=== PATIENT | female | born 1990 | race Native Hawaiian/Other Pacific Islander ===

== ENCOUNTER 2019-05-19 03:00 | Emergency (ER) | payer OTHER ==
[2019-05-19] MEDS ORDERED: Sodium Chloride 0.9% 1000 ML 1,000 ML IV STA (03:06)
--- NOTE | 2019-05-19 03:25 | ERPHSYRPT ---
- History of Present Illness Time Seen by Provider: 05/19/19 03:05 Source: patient Exam Limitations: no limitations Physician History: Patient believes she is with last known menstrual period around 2018. Patient having spotting in the morning of 05/18/2019 with worse bleeding and cramping in the evening of 05/18/2019. The patient is a with 2 previous pregnancies, by preeclampsia. Patient has not had any care up to this point. Timing/Duration: today, hour(s) (15), worse (over the past 5 hours) Activites at Onset: none Quality: cramping Onset Location: vaginal Pain Radiation: none Severity of Pain-Max: moderate Severity of Pain-Current: mild Prior abdominal problems: none Sexual intercourse history: less than 2 months ago, single partner, unprotected intercourse Modifying Factors: Improves With: nothing. Worsens With: analgesics, antacids, breathing, coughing, defecating, eating, exercise, lying down, movement, palpation, rest, urinating, vomiting, position, walking Associated Symptoms: , No abdominal pain, No fever, No chills, No diaphoresis, No nausea, No vomiting, No dysuria, No nocturia, No polyuria, No urinary frequency, No loss of bladder control, No lower back pain, No lumps, No mass, No swelling, No syncope, No vaginal discharge, No vaginal fluid leakage Allergies/Adverse Reactions: aripiprazole [From Abilify] Allergy (Verified 05/19/19 03:31) ziprasidone [From Geodon] Allergy (Verified 05/19/19 03:31) - Review of Systems Constitutional: No Fever, No Chills, No Fatigue Eyes: No Eye Pain, No Vision Changes Ears, Nose, & Throat: No Mouth Swelling, No Painful Swallowing Respiratory: No Cough, No Dyspnea Cardiac: No Chest Pain, No Palpitations, No Syncope Abdominal/Gastrointestinal: Nausea, No Abdominal Pain, No Vomiting, No Hematemesis, No Hematochezia, No Melena Genitourinary Symptoms: , Vaginal Bleeding, No Dysuria, No Frequency, No Hematuria, No Urgency, No Flank Pain, No Vaginal Discharge, No Vaginal Itching Musculoskeletal: No Back Pain, No Neck Pain, No Joint Redness, No Joint Pain, No Joint Swelling Skin: No Pruritis, No Rash Neurological: No Dizziness, No Focal Weakness, No Parasthesia Psychological: No Anxiety, No Emotional Lability Hematologic/Lymphatic: Easy Bruising, No Easy Bleeding - Female History Hx Now: Yes - Nursing Vital Signs Nursing Vital Signs: Initial Vital Signs Temperature 98.7 F 05/19/19 03:04 Pulse Rate 72 05/19/19 03:04 Respiratory Rate 16 05/19/19 03:04 Blood Pressure 135/82 05/19/19 03:04 O2 Sat by Pulse Oximetry 99 05/19/19 03:04 Pain Scale Pain Intensity 4 - Physical Exam General Appearance: no apparent distress, alert Eye Exam: PERRL/EOMI, eyes nml inspection, No scleral icterus Ears, Nose, Throat Exam: pharynx normal, moist mucous membranes Neck Exam: normal inspection, non-tender, supple, full range of motion, No meningismus, No Brudzinski Respiratory Exam: normal breath sounds, lungs clear, airway intact, No chest tenderness, No respiratory distress, No diminished breath sounds, No accessory muscle use, No crackles/rales, No rhonchi, No wheezing, No stridor Cardiovascular Exam: regular rate/rhythm, normal heart sounds, normal peripheral pulses, capillary refill <2 sec, No murmur Gastrointestinal/Abdomen Exam: soft, normal bowel sounds, No tenderness, No distention, No mass, No ecchymosis, No hepatomegaly Pelvic Exam: normal external exam, vaginal bleeding, other (bleeding from the cervix, but cervix is closed; patient had no products of conception in the uterus; chaperoned by Teresa Adamson RN), No adnexal tenderness, No adnexal mass, No cervical motion tenderness, No uterine tenderness, No vaginal discharge Rectal Exam: normal exam, normal rectal tone, No hemorrhoids, No blood Back Exam: normal inspection, normal range of motion, No CVA tenderness, No vertebral tenderness, No rash Extremity Exam: normal inspection, normal range of motion, pelvis stable, No deformities, No miguel's sign, No inflammation, No swelling Neurologic Exam: alert, oriented x 3, cooperative, nurse auditor II-XII nml as tested, normal mood/affect, sensation nml, No motor deficits, No agitation, No motor weakness Skin Exam: normal color, warm, dry, No rash, No petechiae, No jaundice, No cyanosis SpO2 Interpretation: normal O2 Delivery: Room Air - Radiology Ultrasound Exam OB Ultrasound: Other (no intrauterine or extrauterine visualized; complex right ovarian cyst measuring 1.1 x 1.5 x 1.2 cm; two subcentimeter left ovarian cyst;) Ordered Tests: Active Orders 24 hr Category Date Time Status Errand Runner STAT Care 05/19/19 03:09 Active Heart Tones-ED STAT Care 05/19/19 03:10 Active IV Insertion STAT Care 05/19/19 03:06 Active NPO (ED) STAT Care 05/19/19 03:06 Active Pelvic Exam Assist STAT Care 05/19/19 03:06 Active OB <14 WKS 1ST GESTATION [US] Stat Exams 05/19/19 03:54 Taken CBC W DIFF Stat Lab 05/19/19 04:00 Completed CMP Stat Lab 05/19/19 04:00 Completed CULTURE,URINE Stat Lab 05/19/19 03:10 Received HCG, Quantitative (Inhouse) Stat Lab 05/19/19 04:00 Completed PROTIME WITH INR Stat Lab 05/19/19 04:00 Completed PTT Stat Lab 05/19/19 04:00 Completed UA W/RFX UR CULTURE Stat Lab 05/19/19 03:10 Completed Urine Triage Profile Stat Lab 05/19/19 03:10 Completed Wet Prep Stat Lab 05/19/19 03:23 Completed Medication Summary Discontinued Medications Generic Name Dose Route Start Last Admin Trade Name Freq PRN Reason Stop Dose Admin Sodium Chloride 1,000 mls @ 999 mls/hr 05/19/19 03:06 05/19/19 04:25 Sodium Chloride 0.9% 1000 Ml IV 05/19/19 04:06 999 mls/hr .Q1H1M STA Administration Sodium Chloride Confirm 05/19/19 04:21 Sodium Chloride 0.9% 1000 Ml Administered 05/19/19 04:22 Dose 1,000 mls @ ud .ROUTE .STK-MED ONE Lab/Rad Data: Laboratory Result Diagrams 05/19/19 04:00 05/19/19 04:00 Laboratory Results 05/19/19 05/19/19 05/19/19 Range/Units 04:00 04:00 04:00 WBC (4.0-10.5) K/mm3 RBC (4.1-5.4) M/mm3 Hgb (12.0-16.0) gm/dl Hct (35-47) % MCV (78-100) fl MCH (26-32) pg MCHC (32-36) g/dl RDW (11.5-14.0) % Plt Count (150-450) K/mm3 MPV (6-9.5) fl Gran % (36.0-66.0) % Eos # (Auto) (0-0.5) Absolute Lymphs (auto) (1.0-4.6) Absolute Monos (auto) (0.0-1.3) Lymphocytes % (24.0-44.0) % Monocytes % (0.0-12.0) % Eosinophils % (0.00-5.0) % Basophils % (0.0-0.4) % Absolute Granulocytes (1.4-6.9) Basophils # (0-0.4) PT 12.4 H (9.95-12.35) SECONDS INR 1.10 (0.8-3.0) APTT 30.6 (25.3-37.0) SECONDS Sodium 141 (137-145) mmol/L Potassium 4.0 (3.5-5.1) mmol/L Chloride 104 (98-107) mmol/L Carbon Dioxide 28 (22-30) mmol/L Anion Gap 13.6 (5-15) MEQ/L BUN 13 (7-17) mg/dL Creatinine 0.67 (0.52-1.04) mg/dL Estimated GFR > 60.0 ML/MIN Glucose 98 (74-106) mg/dL Calcium 9.5 (8.4-10.2) mg/dL Total Bilirubin 0.30 (0.2-1.3) mg/dL AST 17 (14-36) U/L ALT 16 (0-35) U/L Alkaline Phosphatase 60 (38-126) U/L Serum Total Protein 7.4 (6.3-8.2) g/dL Albumin 3.8 (3.5-5.0) g/dL Beta HCG, Quant < 2.39 mIU/ml Urine Color (YELLOW) Urine Appearance (CLEAR) Urine pH (5-6) Ur Specific [place] (1.005-1.025) Urine Protein (Negative) Urine Ketones (NEGATIVE) Urine Blood (0-5) Gurpreet/ul Urine Nitrite (NEGATIVE) Urine Bilirubin (NEGATIVE) Urine Urobilinogen (0-1) mg/dL Ur Leukocyte Esterase (NEGATIVE) Urine WBC (Auto) (0-5) /HPF Urine RBC (Auto) (0-2) /HPF U Epithel Cells (Auto) (FEW) /HPF Urine Bacteria (Auto) (NEGATIVE) /HPF Urine Mucus (Auto) (NEGATIVE) /HPF Urine Culture Reflexed (NO) Urine Glucose (NEGATIVE) mg/dL WBC (Wet Prep) RBC (Wet Prep) Epi Cells (Wet Prep) Bacteria (Wet Prep) Clue Cells (Wet Prep) Trichomonas (Wet Prep) Budding Yeast (Wet Prp) Urine Opiates Level (NEGATIVE) Ur Methadone (NEGATIVE) Urine Barbiturates (NEGATIVE) Ur Phencyclidine (PCP) (NEGATIVE) Urine Amphetamine (NEGATIVE) U Benzodiazepine Level (NEGATIVE) Urine Cocaine (NEGATIVE) Urine Marijuana (THC) (NEGATIVE) Chlamydia DNA (PCR) N.gonorrhoeae DNA Probe ABO Group Rh Factor Antibody Screen (NEGATIVE) 05/19/19 05/19/19 05/19/19 Range/Units 04:00 04:00 03:23 WBC 8.8 (4.0-10.5) K/mm3 RBC 4.75 (4.1-5.4) M/mm3 Hgb 12.8 (12.0-16.0) gm/dl Hct 37.7 (35-47) % MCV 79.4 (78-100) fl MCH 26.9 (26-32) pg MCHC 34.0 (32-36) g/dl RDW 14.8 H (11.5-14.0) % Plt Count 376 (150-450) K/mm3 MPV 8.2 (6-9.5) fl Gran % 60.1 (36.0-66.0) % Eos # (Auto) 0.14 (0-0.5) Absolute Lymphs (auto) 2.81 (1.0-4.6) Absolute Monos (auto) 0.55 (0.0-1.3) Lymphocytes % 31.9 (24.0-44.0) % Monocytes % 6.2 (0.0-12.0) % Eosinophils % 1.6 (0.00-5.0) % Basophils % 0.2 (0.0-0.4) % Absolute Granulocytes 5.30 (1.4-6.9) Basophils # 0.02 (0-0.4) PT (9.95-12.35) SECONDS INR (0.8-3.0) APTT (25.3-37.0) SECONDS Sodium (137-145) mmol/L Potassium (3.5-5.1) mmol/L Chloride (98-107) mmol/L Carbon Dioxide (22-30) mmol/L Anion Gap (5-15) MEQ/L BUN (7-17) mg/dL Creatinine (0.52-1.04) mg/dL Estimated GFR ML/MIN Glucose (74-106) mg/dL Calcium (8.4-10.2) mg/dL Total Bilirubin (0.2-1.3) mg/dL AST (14-36) U/L ALT (0-35) U/L Alkaline Phosphatase (38-126) U/L Serum Total Protein (6.3-8.2) g/dL Albumin (3.5-5.0) g/dL Beta HCG, Quant mIU/ml Urine Color (YELLOW) Urine Appearance (CLEAR) Urine pH (5-6) Ur Specific [place] (1.005-1.025) Urine Protein (Negative) Urine Ketones (NEGATIVE) Urine Blood (0-5) Gurpreet/ul Urine Nitrite (NEGATIVE) Urine Bilirubin (NEGATIVE) Urine Urobilinogen (0-1) mg/dL Ur Leukocyte Esterase (NEGATIVE) Urine WBC (Auto) (0-5) /HPF Urine RBC (Auto) (0-2) /HPF U Epithel Cells (Auto) (FEW) /HPF Urine Bacteria (Auto) (NEGATIVE) /HPF Urine Mucus (Auto) (NEGATIVE) /HPF Urine Culture Reflexed (NO) Urine Glucose (NEGATIVE) mg/dL WBC (Wet Prep) RBC (Wet Prep) Epi Cells (Wet Prep) Bacteria (Wet Prep) Clue Cells (Wet Prep) Trichomonas (Wet Prep) Budding Yeast (Wet Prp) Urine Opiates Level (NEGATIVE) Ur Methadone (NEGATIVE) Urine Barbiturates (NEGATIVE) Ur Phencyclidine (PCP) (NEGATIVE) Urine Amphetamine (NEGATIVE) U Benzodiazepine Level (NEGATIVE) Urine Cocaine (NEGATIVE) Urine Marijuana (THC) (NEGATIVE) Chlamydia DNA (PCR) NEGATIVE N.gonorrhoeae DNA Probe NEGATIVE ABO Group A Rh Factor POSITIVE Antibody Screen NEGATIVE (NEGATIVE) 05/19/19 05/19/19 05/19/19 Range/Units 03:23 03:10 03:10 WBC (4.0-10.5) K/mm3 RBC (4.1-5.4) M/mm3 Hgb (12.0-16.0) gm/dl Hct (35-47) % MCV (78-100) fl MCH (26-32) pg MCHC (32-36) g/dl RDW (11.5-14.0) % Plt Count (150-450) K/mm3 MPV (6-9.5) fl Gran % (36.0-66.0) % Eos # (Auto) (0-0.5) Absolute Lymphs (auto) (1.0-4.6) Absolute Monos (auto) (0.0-1.3) Lymphocytes % (24.0-44.0) % Monocytes % (0.0-12.0) % Eosinophils % (0.00-5.0) % Basophils % (0.0-0.4) % Absolute Granulocytes (1.4-6.9) Basophils # (0-0.4) PT (9.95-12.35) SECONDS INR (0.8-3.0) APTT (25.3-37.0) SECONDS Sodium (137-145) mmol/L Potassium (3.5-5.1) mmol/L Chloride (98-107) mmol/L Carbon Dioxide (22-30) mmol/L Anion Gap (5-15) MEQ/L BUN (7-17) mg/dL Creatinine (0.52-1.04) mg/dL Estimated GFR ML/MIN Glucose (74-106) mg/dL Calcium (8.4-10.2) mg/dL Total Bilirubin (0.2-1.3) mg/dL AST (14-36) U/L ALT (0-35) U/L Alkaline Phosphatase (38-126) U/L Serum Total Protein (6.3-8.2) g/dL Albumin (3.5-5.0) g/dL Beta HCG, Quant mIU/ml Urine Color RED (YELLOW) Urine Appearance SLIGHTLY CLOUDY (CLEAR) Urine pH 5.0 (5-6) Ur Specific [place] 1.019 (1.005-1.025) Urine Protein 100 (Negative) Urine Ketones NEGATIVE (NEGATIVE) Urine Blood LARGE (0-5) Gurpreet/ul Urine Nitrite NEGATIVE (NEGATIVE) Urine Bilirubin NEGATIVE (NEGATIVE) Urine Urobilinogen NEGATIVE (0-1) mg/dL Ur Leukocyte Esterase TRACE (NEGATIVE) Urine WBC (Auto) 3-5 (0-5) /HPF Urine RBC (Auto) >101 (0-2) /HPF U Epithel Cells (Auto) RARE (FEW) /HPF Urine Bacteria (Auto) FEW (NEGATIVE) /HPF Urine Mucus (Auto) SLIGHT (NEGATIVE) /HPF Urine Culture Reflexed ORDERED SEPARATELY (NO) Urine Glucose NEGATIVE (NEGATIVE) mg/dL WBC (Wet Prep) Rare RBC (Wet Prep) Moderate Epi Cells (Wet Prep) Rare Bacteria (Wet Prep) Few Clue Cells (Wet Prep) None Seen Trichomonas (Wet Prep) None Seen Budding Yeast (Wet Prp) None Seen Urine Opiates Level NEGATIVE (NEGATIVE) Ur Methadone NEGATIVE (NEGATIVE) Urine Barbiturates NEGATIVE (NEGATIVE) Ur Phencyclidine (PCP) NEGATIVE (NEGATIVE) Urine Amphetamine NEGATIVE (NEGATIVE) U Benzodiazepine Level NEGATIVE (NEGATIVE) Urine Cocaine NEGATIVE (NEGATIVE) Urine Marijuana (THC) NEGATIVE (NEGATIVE) Chlamydia DNA (PCR) N.gonorrhoeae DNA Probe ABO Group Rh Factor Antibody Screen (NEGATIVE) - Progress Progress: re-examined Air Movement: good Progress Note: 05/19/19 04:58 Patient is doing well. Patient has no abdominal pain, no CVA tenderness Blood Culture(s) Obtained: No Antibiotics given: No Counseled pt/family regarding: lab results, diagnosis, need for follow-up, rad results - Departure Departure Disposition: Home Clinical Impression: Missed menses, Menorrhagia with irregular cycle, Elevated blood pressure reading without diagnosis of hypertension, Nausea, Right ovarian cyst Condition: Good Critical Care Time: No Referrals: DOCTOR,NO FAMILY [Primary Care Provider] - FELICITA BAIG [ACTIVE STAFF] - 05/22/19 Instructions: Heavy Periods (DC), Ovarian Cyst (DC), DASH Diet Additional Instructions: You had a right ovarian cyst on your ultrasound and a few small ones on the left ovary, but your labwork and ultrasound do not show any signs of . Your blood type is A positive. Follow-up with your doctor or the referral to schedule a repeat ultrasound to check the cyst's progress. Return to the emergency department and if any worse abdominal pain, new CVA tenderness, any urinary symptoms, any new nausea and vomiting, or any other concerning signs or symptoms that were not present at today's emergency room visit for immediate reevaluation in the emergency department. Prescriptions: Promethazine HCl 25 mg [Phenergan 25 mg] 25 mg PO Q6H PRN PRN #12 tablet PRN Reason: Nausea
[2019-05-19 03:44] LABS: Appearance SLIGHTLY CLOUDY (CLEAR); Bilirubin NEGATIVE (NEGATIVE); Blood LARGE Ery/ul (0-5); Epithelial Cells RARE /HPF (FEW); Glucose NEGATIVE (NEGATIVE); Ketones NEGATIVE (NEGATIVE); Leukocyte Esterase TRACE (NEGATIVE); Mucus SLIGHT /HPF (NEGATIVE); Nitrite NEGATIVE (NEGATIVE); Protein,Urine Dip 100 (Negative); Specific Gravity 1.019 (1.005-1.025); Urobilinogen NEGATIVE mg/dL (0-1)
[2019-05-19 03:46] LABS: Bacteria FEW /HPF (NEGATIVE); RBC >101 /HPF (0-2)
[2019-05-19 03:53] LABS: Amphetamine,Urine NEGATIVE (NEGATIVE); Barbiturate,Urine NEGATIVE (NEGATIVE); Benzodiazepine,Urine NEGATIVE (NEGATIVE); Cocaine,Urine NEGATIVE (NEGATIVE); Methadone,Urine NEGATIVE (NEGATIVE); Opiate,Urine NEGATIVE (NEGATIVE); PCP,Urine NEGATIVE (NEGATIVE); THC,Urine NEGATIVE (NEGATIVE)
[2019-05-19 04:11] LABS: BASOPHIL % 0.2 % (0.0-0.4); Basophil (Absolute #) 0.02 (0-0.4); Eosinophil % 1.6 % (0.00-5.0); Eosinophil (Absolute #) 0.14 (0-0.5); Hematocrit 37.7 % (35-47); Hemoglobin 12.8 gm/dl (12.0-16.0); Lymphocyte (Absolute #) 2.81 (1.0-4.6); Lymphocytes % 31.9 % (24.0-44.0); Mean Cell Volume 79.4 fl (78-100); Mean Corpuscular Hemoglobin 26.9 pg (26-32); Mean Platelet Volume 8.2 fl (6-9.5); Monocyte (Absolute #) 0.55 (0.0-1.3); Monocytes % 6.2 % (0.0-12.0); Neutrophil % 60.1 % (36.0-66.0); Platelet Count 376 K/mm3 (150-450); Red Blood Count 4.75 M/mm3 (4.1-5.4); Red Cell Distribution Width 14.8 % (11.5-14.0); White Blood Count 8.8 K/mm3 (4.0-10.5)
[2019-05-19] MEDS ORDERED: Sodium Chloride 0.9% 1000 ML 1,000 ML ONE (04:21)
[2019-05-19 04:33] LABS: ALBUMIN 3.8 g/dL (3.5-5.0); ALKALINE PHOSPHATASE 60 U/L (38-126); ANION GAP 13.6 MEQ/L (5-15); BLOOD UREA NITROGEN 13 mg/dL (7-17); CHLORIDE 104 mmol/L (98-107); Calcium 9.5 mg/dL (8.4-10.2); Carbon Dioxide 28 mmol/L (22-30); Creatinine 1 0.67 mg/dL (0.52-1.04); Glucose 98 mg/dL (74-106); SGOT/AST 17 U/L (14-36); SGPT/ALT 16 U/L (0-35); SODIUM 141 mmol/L (137-145); Total Protein 7.4 g/dL (6.3-8.2)
[2019-05-19 04:36] LABS: INR 1.1 (0.8-3.0); PROTIME 12.4 SECONDS (9.95-12.35)
[2019-05-19 04:39] LABS: PTT 30.6 SECONDS (25.3-37.0)
[2019-05-19 04:55] LABS: ABO TYPING A; Antibody Screen NEGATIVE (NEGATIVE); RH TYPING POSITIVE
[2019-05-19 04:55] LABS: Bacteria Few; Clue Cells None Seen; Red Blood Cells Moderate; Trichomonas None Seen; White Blood Cells Rare; Yeast None Seen
[2019-05-19 05:00] LABS: CHLAMYDIA DNA NEGATIVE; N GONORRHOEAE DNA NEGATIVE
[2019-05-19 05:35] VITALS: BP 143/74; PULSE 84; O2SAT 98
--- NOTE | 2019-05-19 09:08 | XRAY ---
Indication: Vaginal bleeding and cramping. Patient states 12 weeks . Two-dimensional transvaginal early OB ultrasound performed. Comparison: None Uterus is retroverted measuring 5.3 x 4.2 x 4.3 cm. Myometrium homogeneous. Endometrial stripe measures 7.6 mm. No endometrial cavity mass, fluid collection, or gestational sac. Right ovary measures 1.7 x 1.9 x 2.2 cm and the left measures 1.8 x 2.1 x 1.2 cm with normal follicular cysts and perfusion bilaterally. No suspicious adnexal mass or free fluid. Impression: Negative pelvic sonogram. Specifically no evidence for intrauterine or ectopic . Comment: Preliminary report was given.
[2019-05-22 14:06] LABS: RPR Screen Non Reactive (Non Reactive)
== END 2019-05-19 05:35 | disposition home or self-care (01) ==
LOC: ED 03:00
DX: N94.89 Other specified conditions associated with female genital organs and menstrual cycle (principal); N92.0 Excessive and frequent menstruation with regular cycle; R03.0 Elevated blood-pressure reading, without diagnosis of hypertension; R11.0 Nausea; N83.201 Unspecified ovarian cyst, right side
CPT/HCPCS: 0064U; 36000; 36415; 76801; 80053; 80307; 81001; 84702; 85025; 85610; 85730; 86592; 86593; 86850; 86900; 86901; 87086; 87210; 87490; 87590; 96360; 99284